=== PATIENT | male | born 1970 | race Caucasian/White ===

== ENCOUNTER 2019-03-28 13:08 | Emergency (ER) | payer OTHER ==
[~2019-03-28] VITALS: Ht 180.3 cm; Wt 82.6 kg
[~2019-03-28 13:08] MED LIST: IBUPROFEN 400400 M1 PO; PERCOCET 5-3251 EACH PO; ZOFRAN ODT4 MG PO
[2019-03-28 16:51] VITALS: BP 132/79
[2019-03-28 16:54] LABS: HEMATOCRIT 39.3 % (42.0-52.0); HEMOGLOBIN 13.6 gm/dL (14.0-18.0); MCH 30.9 pg (26.0-34.0); MCHC 34.6 g/dL (28.0-37.0); MCV 89.3 fL (80.0-100.0); MPV 9.2 fl. (7.2-11.1); NUCLEATED RBCS 0 /100WBC; PLATELET COUNT* 226 thou/uL (150-400); RDW-CV 13.9 % (10.5-14.5); WBC 16.6 thou/uL (4.0-11.0)
[2019-03-28 17:01] LABS: CALCIUM 9.7 mg/dL (8.5-10.1); CREATININE 1.1 mg/dL (0.6-1.3); POTASSIUM 3.8 mmol/L (3.5-5.1)
[2019-03-28 17:05] LABS: ALBUMIN 4.1 g/dL (3.4-5.0); TOTAL BILIRUBIN 0.7 mg/dL (<0.1-1.0)
[2019-03-28 17:16] LABS: ABSOLUTE LYMPHOCYTES 2.3 thou/uL (0.8-5.3); ABSOLUTE MONOCYTES 0.5 thou/uL (0.0-1.2); ABSOLUTE NEUTROPHILS 13.8 thou/uL (1.6-8.1); PLATELET ESTIMATE ADEQUATE
== END 2019-03-28 16:52 | disposition short-term general hospital (02) ==
LOC: M.ERS 13:08
PROVIDERS: Physician Assistant
DX: S02.40FA Zygomatic fracture, left side, initial encounter for closed fracture (principal); K02.9 Dental caries, unspecified; H53.8 Other visual disturbances; F17.210 Nicotine dependence, cigarettes, uncomplicated; Z88.0 Allergy status to penicillin; Y08.89XA Assault by other specified means, initial encounter; Y93.89 Activity, other specified; Y92.89 Other specified places as the place of occurrence of the external cause; Y99.8 Other external cause status

== ENCOUNTER 2020-01-22 01:45 | Emergency (ER) | payer OTHER ==
[~2020-01-22] VITALS: Ht 180.3 cm; Wt 82.6 kg
[2020-01-22] MEDS ORDERED: OXYCODONE HCL 55 MG PO (02:59)
[2020-01-22] MEDS ORDERED: CIPROFLOXACIN500 M1 PO ×2 (02:59→15:53)
[2020-01-22 03:30] VITALS: BP 107/63
[2020-01-22] MEDS ORDERED: PERCOCET 5-3251 EACH PO (15:53)
[2020-01-22] MEDS ORDERED: CLEOCIN HCL300 MG PO (15:53)
== END 2020-01-22 03:32 | disposition home or self-care (01) ==
LOC: M.ERS 01:45
DX: S01.312A Laceration without foreign body of left ear, initial encounter (principal); F17.210 Nicotine dependence, cigarettes, uncomplicated; Z88.0 Allergy status to penicillin; Y08.89XA Assault by other specified means, initial encounter; Y93.89 Activity, other specified; Y92.89 Other specified places as the place of occurrence of the external cause; Y99.8 Other external cause status

== ENCOUNTER 2020-10-21 23:34 | Emergency (ER) | payer OTHER ==
[~2020-10-21] VITALS: Ht 180.3 cm; Wt 79.4 kg
[~2020-10-21 23:34] MED LIST changes: +CIPROFLOXACIN500 M1 PO; +CLEOCIN HCL300 MG PO; +OXYCODONE HCL 55 MG PO
[2020-10-22] MEDS ORDERED: DOXYCYCLINE 10100 MG PO (00:36)
[2020-10-22 00:46] VITALS: BP 127/82
== END 2020-10-22 00:46 | disposition home or self-care (01) ==
LOC: M.ERS 23:34
DX: L02.512 Cutaneous abscess of left hand (principal); F17.210 Nicotine dependence, cigarettes, uncomplicated; Z88.0 Allergy status to penicillin